=== PATIENT | male | born 1985 | race Caucasian/White ===

== ENCOUNTER 2016-11-25 14:39 | Emergency (ER) | payer SELFPAY ==
--- NOTE | 2016-11-25 15:28 | Diagnostic Imaging Report ---
VEL JOHNSON (KALLI) - ER [facility] [address] [facility].[address] [address] Report Submission Date: Nov 25, 2016 3:09:02 PM CDT Patient Study Name: YENNY PRO Date: Nov 25, 2016 2:49:06 PM CDT Modality Type: CR Gender: M Description: LOWER EXTREMITY : 83 Institution: [facility] Physician: VEL JOHNSON (KALLI) - ER Examination: Plain film foot History: Trauma Findings: 3 views of the foot demonstrates normal cortical margins. No fracture or dislocation. Posterior calcaneal spur. No soft tissue swelling. No joint effusion. Impression: No fracture. Electronically signed on Nov 25, 2016 3:09:02 PM CDT by: Reid INMAN
[2016-11-25] MEDS ORDERED: KETOROLAC TROMETHAMINE 60 MG/2 ML VIAL ONE (15:29)
[2016-11-25] MEDS ORDERED: KETOROLAC TROMETHAMINE 60 MG/2 ML VIAL IM ONE (15:30)
--- NOTE | 2016-11-25 15:37 | ED Physician Documentation ---
Lower Extremity Injury - HISTORIAN Historian: patient - HPI Stated Complaint: RLE pain, R ankle swelling Chief Complaint: Lower Extremity Injury Onset: days ago (yesterday) Severity: severe Context: other (sliding into base) Associated Symptoms:: popping sensation, unable to bear weight, other (lateral swelling) Modifying Factors:: pain on movement - ROS CONST: no problems CVS/RESP: none GI/: denies: problems urinating, nausea, vomiting, other MS/SKIN/LYMPH: none NEURO: denies: headache, head injury, anxiety, depression - PAST HX Past History: none Allergies/Adverse Reactions: Allergies Allergy/AdvReac Type Severity Reaction Status Date / Time No Known Allergies Allergy Verified 11/25/16 15:03 Home Medications: Ambulatory Orders Medication Instructions Recorded Ketorolac Tromethamine [Toradol] 10 mg PO TID #15 tablet 11/25/16 - SOCIAL HX Smoking History: cigarettes - FAMILY HX Family History: denies: none - VITAL SIGNS Vital Signs: Vital Signs Temp Pulse Resp BP Pulse Ox 98.4 F 81 18 132/69 98 11/25/16 14:53 11/25/16 14:53 11/25/16 14:53 11/25/16 14:53 11/25/16 14:53 - REVIEWED ASSESSMENTS Nursing Assessment Reviewed: Yes Vitals Reviewed: Yes ED Results Lab/Radiology - Radiology Radiology Impressions: Examination: Plain film tibia/fibula History: Trauma Comparison exams: None available Findings: 3 views of the tibia fibula demonstrates normal cortical margins. No evidence for fracture line. No soft tissue abnormality. Impression: No osseous abnormality. Electronically signed on Nov 25, 2016 3:32:18 PM CDT by: Reid Foote Examination: Plain film foot History: Trauma Findings: 3 views of the foot demonstrates normal cortical margins. No fracture or dislocation. Posterior calcaneal spur. No soft tissue swelling. No joint effusion. Impression: No fracture. Electronically signed on Nov 25, 2016 3:09:02 PM CDT by: Reid Foote - Orders Orders: ED Orders Category Date Time Status Obed Wrap Affected Extremity 1T Care 11/25/16 15:30 Active FOOT 3 VIEWS OR MORE [RAD] Stat Exams 11/25/16 Completed TIBIA & FIBULA 2 VIEW [RAD] Stat Exams 11/25/16 Taken Ketorolac Tromethamine [Toradol] Med 11/25/16 15:29 Discontinued 60 mg .ROUTE .STK-MED ONE Ketorolac Tromethamine [Toradol] Med 11/25/16 15:30 Discontinued 60 mg IM NOW ONE Lower Extremities Injury Phy - Physical Exam General Appearance: no acute distress Ankle: right: limited range of motion, pain, soft tissue tenderness, swelling, left: non-tender, normal inspection, normal range of motion, no evidence of injury Foot: left foot: normal range of motion, no evidence of injury, bilateral foot: non-tender, normal inspection Gait: limited by pain, unable to bear weight Neuro/Vascular/Tendon: no vascular compromise, motor nml, sensation nml, ROM nml Discharge Clincal Impression: Ankle sprain Qualifiers: Encounter type: initial encounter Involved ligament of ankle: unspecified ligament Laterality: right Qualified Code(s): S93.401A - Sprain of unspecified ligament of right ankle, initial encounter Prescriptions: Ketorolac Tromethamine [Toradol] 10 mg PO TID #15 tablet Referrals: Primary Doctor,No [Primary Care Provider] - 2 Days Additional Instructions: Ice Rest Elevation If you are unable to bear weight and continuing to have signficant pain on day 3 -4; see your PCP for re-evaluation and additional xrays. You may use Tylenol every 4hour as needed for pain. Limit your dose to less than 4 G per day. Do not take ibuprofen, aleve, naproxen or any other NSAID while you are on toradol. You may want to try massage, biofreeze, meredith [place] or aspercream Home Medications: Ambulatory Orders Ketorolac Tromethamine [Toradol] 10 mg PO TID #15 tablet 11/25/16 Condition: Stable Disposition: 01 HOME, SELF-CARE Decision to Admit: NO Decision Time: 15:42
--- NOTE | 2016-11-25 15:42 | Diagnostic Imaging Report ---
VEL JOHNSON (KALLI) - ER [facility] [address] [facility].[address] [address] Report Submission Date: Nov 25, 2016 3:32:18 PM CDT Patient Study Name: YENNY PRO Date: Nov 25, 2016 3:02:54 PM CDT Modality Type: CR Gender: M Description: LOWER EXTREMITY : 83 Institution: [facility] Physician: VEL JOHNSON (KALLI) - ER Examination: Plain film tibia/fibula History: Trauma Comparison exams: None available Findings: 3 views of the tibia fibula demonstrates normal cortical margins. No evidence for fracture line. No soft tissue abnormality. Impression: No osseous abnormality. Electronically signed on Nov 25, 2016 3:32:18 PM CDT by: Reid INMAN
[2016-11-25 15:48] VITALS: BP 125/64
== END 2016-11-25 15:46 | disposition home or self-care (01) ==
LOC: ED 14:39
DX: S93.401A Sprain of unspecified ligament of right ankle, initial encounter (principal); X58.XXXA Exposure to other specified factors, initial encounter; Y93.9 Activity, unspecified; Y99.9 Unspecified external cause status
CPT/HCPCS: 73590; 73630; J1885; 99283